=== PATIENT | female | born 1945 | race Caucasian/White ===

== ENCOUNTER 2017-08-01 09:58 | Inpatient (IN) | payer OTHER ==
[2017-07-24 14:01] VITALS: BMI 37.0
--- NOTE | 2017-07-24 14:40 | PAT Medication Instructions ---
Service Date Jul 24, 2017. Current Home Medication List Alendronate/Cholecalciferol (Fosamax+D 70MG/2800 Iu), 1 TABLET PO WK Aspirin (Aspirin Ec), 81 MG PO HS Escitalopram Oxalate (Lexapro), 40 MG PO HS Levothyroxine Sodium (Levothyroxine Sodium), 1 TAB PO QAM Lisinopril (Prinivil), 5 MG PO BID Lorazepam (Ativan), 0.5 MG PO BID PRN for RN Meloxicam (Mobic), 15 MG PO QAM Metoprolol Tartrate (Lopressor) (Lopressor), 25 MG PO QAM Multivitamin (Multivitamin), 1 TAB PO QPM Simvastatin (Zocor), 20 MG PO QPM Medication Instructions For Your Scheduled Surgery -Continue as directed: Alendronate/Cholecalciferol (Fosamax+D 70MG/2800 Iu), 1 TABLET PO WK - Hold the following medications per your surgeon's instructions: Meloxicam (Mobic), 15 MG PO QAM - Hold the following medications 24 hours prior to surgery: Lisinopril (Prinivil), 5 MG PO BID-- do not take the day before or the morning of surgery - Take the following medications the morning of surgery with a sip of water: Metoprolol Tartrate (Lopressor) (Lopressor), 25 MG PO QAM Lorazepam (Ativan), 0.5 MG PO BID PRN for RN (if needed) Levothyroxine Sodium (Levothyroxine Sodium), 1 TAB PO QAM - Take the following medications as scheduled the night before surgery: Multivitamin (Multivitamin), 1 TAB PO QPM Simvastatin (Zocor), 20 MG PO QPM Lorazepam (Ativan), 0.5 MG PO BID PRN for RN (if needed) Escitalopram Oxalate (Lexapro), 40 MG PO HS Aspirin (Aspirin Ec), 81 MG PO HS If you have any questions please call us at [phone] or [phone] or [phone]
--- NOTE | 2017-07-24 15:16 | DIAGNOSTIC IMAGING REPORT ---
TWO VIEW CHEST CLINICAL HISTORY: Preoperative examination. FINDINGS: PA and lateral chest radiographs are obtained. No prior studies are available for comparison at the time of dictation. The PA view is degraded by atypical lordotic positioning. The heart is mildly enlarged. The pulmonary vasculature is noncongested. The lungs and pleural spaces are clear. There is no pneumothorax. The skeletal structures are osteopenic. Degenerative change is noted throughout the thoracic spine. Cholecystectomy clips are identified in the right upper quadrant. IMPRESSION: Mild cardiac enlargement with no active disease in the chest. Electronically signed by: Ronny Lim M.D. 07/24/2017 3:14 PM Dictated Date/Time: 07/24/2017 3:14 PM
[2017-07-24 15:59] LABS: BASO % 0.4 %; BASO ABS # 0.03 K/uL (0-0.2); EOS % 1.1 %; EOS ABS # 0.09 K/uL (0-0.5); HEMATOCRIT 40.5 % (37-47); HEMOGLOBIN 13.4 g/dL (12.0-16.0); IG# 0.02 K/uL (0.00-0.02); LYMPH % 21.3 %; LYMPH ABS # 1.68 K/uL (1.2-3.4); MEAN CELL VOLUME 90.6 fL (80-100); MEAN CORPUSCULAR HGB CONC 33.1 g/dl (32-36); MEAN PLATELET VOLUME 10.7 fL (7.4-10.4); MONO % 5.8 %; MONO ABS # 0.46 K/uL (0.11-0.59); NEUT % 71.1 %; NEUT ABS # 5.61 K/uL (1.4-6.5); PLATELET COUNT 189 K/uL (130-400); RED CELL DISTRIBUTION WIDTH CV 13.3 % (11.5-14.5); RED CELL DISTRIBUTION WIDTH SD 44.1 fL (36.4-46.3); WHITE BLOOD COUNT 7.89 K/uL (4.8-10.8)
[2017-07-24 16:08] LABS: PTT PATIENT 28.7 SECONDS (21.0-31.0)
[2017-07-24 16:23] LABS: CREATININE 0.82 mg/dl (0.60-1.20); POTASSIUM 5.1 mmol/L (3.5-5.1)
--- NOTE | 2017-07-24 21:10 | HISTORY & PHYSICAL EXAMINATION ---
DATE OF ADMISSION: 08/01/2017 CHIEF COMPLAINT: Right hip and leg pain. HISTORY OF PRESENT ILLNESS: The patient is a 72-year-old female who is referred for treatment of her right hip. She has about a 1 year history of significantly increased right hip, leg and knee pain and discomfort. This started insidiously about a year ago. She saw a physician over in [place], who injected her knee several times with steroid as well as viscosupplementation without any relief. She had an MRI which revealed a fairly minimal arthritic change. She then saw her spine physician, Dr. Harper who evaluated her and got an x-ray of her hip which revealed advanced hip arthritis. She presents to me for treatment. Pain has been gradually gotten worse over the past year. She describes groin pain, thigh pain and knee pain. No swelling. She has been through all kinds of medicines with minimal relief. She would now like to proceed with surgical treatment. PAST MEDICAL HISTORY: 1. Hypertension. 2. Elevated cholesterol. 3. Sleep apnea with a CPAP machine. 4. Anxiety/depression. 5. Hypothyroidism. 6. Obesity. PAST SURGICAL HISTORY: Include: 1. Cholecystectomy. 2. Hysterectomy. 3. Tonsillectomy. 4. Herniorrhaphy. ALLERGIES: CODEINE WHICH CAUSES NAUSEA. CURRENT MEDICINES: 1. Citalopram 40 mg once a day. 2. Zocor 20 mg once a day. 3. Lisinopril 5 mg twice a day. 4. Metoprolol 50 mg once a day. 5. Fosamax 35 mg once a week. 6. Levothyroxine 25 mcg a day. 7. Aspirin 81 mg. 8. Centrum Silver once a day. 9. Meloxicam 15 mg a day. SOCIAL HISTORY: A 72-year-old female. She is . She is from [facility]. Does not smoke. FAMILY HISTORY: Negative for diabetes, heart disease, blood clots. REVIEW OF SYSTEMS: Negative for diabetes. Denies any chest pain or shortness of breath. No history of DVT or PE. Fairly minimal back pain. No fevers or weight loss. No rashes. PHYSICAL EXAMINATION: GENERAL: The patient reveals a healthy, pleasant, middle-aged female who looks to be in reasonably good health. HEENT: Benign. NECK: Supple. No lymphadenopathy. LUNGS: Clear to auscultation. HEART: Has a regular rate and rhythm. ABDOMEN: Soft, nontender, nondistended. EXTREMITIES: Grossly neurovascularly intact except as follows: Examination of the right leg reveals patient walks with a bit of a limp. Leg lengths clinically appear equal. She does have pain with any type of hip motion. She can internally rotate to neutral, external rotation of 25 degrees. It is painful. Negative straight leg raise. Examination of the right knee reveals fairly neutral alignment of knee. No knee effusion. Range of motion 125-130. No instability. X-RAYS: X-ray of the right hip reviewed. It shows advanced right hip DJD. She has got concentric loss of her joint space. Not a lot of osteophytes, but complete loss of the joint space. She has cystic changes of the femoral head and acetabulum. She does have an MRI of her knee from the outside, done in May 2017. Minimal arthritic change. No significant knee effusion. Mild degenerative changes of the medial meniscus. ASSESSMENT: A 72-year-old female with a 1 year history of progressively increasing right leg pain and discomfort, consistent with progressive hip arthritis. Despite being presented mostly as knee pain, I think most all of her pain is coming from her hip. She has failed conservative treatment and would like have her right hip replaced. PLAN: We will take her to the operating room and do a right total hip replacement. The risks and benefits of this procedure were explained to patient including but not limited to DVT, PE, , infection, neurological injury, vascular injury, bleeding problem, pain, limited range of motion, stiffness, failure to relieve symptoms, incomplete relief of symptoms, need for further surgery in the future, fracture, leg length inequality, nerve palsy, dislocation, etc. The patient understands and desires to proceed. Informed consent was obtained. We did talk to her about holding her Mobic 10 days preoperatively and lisinopril the morning of surgery. She will take her Lopressor the morning of surgery. I talked to bring her CPAP machine to the hospital. She is planning to be discharged to home using [facility]. Her can assist in her care. ZITA
[~2017-08-01] VITALS: Ht 160 cm; Wt 96.6 kg
[2017-08-01] VITALS (15 sets, daily range): BP systolic 110–175; BP diastolic 61–86; PULSE 64–81; TEMP 36.6–37; O2SAT 94–100; Ht 160 cm; Wt 96.6 kg
[~2017-08-01 09:58] MED LIST: ACETAMINOPHEN 500 MG TAB PO SCH; ASPI81TA28 PO; ATROPINE SULFATE 0.1 MG/ML 5ML SYR IV PRN; BUPIVACAINE 0.5 % 5 MG/1 ML PF 10ML VIAL ONE; CEFAZOLIN 2000MG IV PUSH 15 ML IV SCH; ESCI1TAB10 PO; EpHEDrine SULFATE INJ 50 MG/ML AMP IV PRN; FENTANYL CITRATE INJ 50 MCG/1 ML 2 ML VIAL IV PRN; FSMD/70 PO; GABAPENTIN 300 MG CAP PO SCH; HYDROmorphone INJ 1 MG/ML SYR IV PRN; LACTATED RINGER'S 1000ML 1,000 ML IV SCH; LACTATED RINGER'S 1000ML 500 ML IV SCH; LACTATED RINGER'S 1000ML IV SCH; LEVO25TA5 PO; LISI-729 PO; LORA-741 PO; MELO7.5T5 PO; METO25TA56 PO; METOCLOPRAMIDE HCL 10 MG TAB PO SCH; MULT-506 PO; ONDANSETRON INJ 2 MG/ML 2 ML VIAL IV PRN; PHENYLEPHRINE 100MCG/ML 5ML SYR IV PRN; SIMV20TA2 PO; TRANEXAMIC ACID INJ 1,000 MG in SYRINGE 0 ML IV SCH
[2017-08-01] MEDS ORDERED: MORPHINE SULFATE 1MG/1ML 30ML VIAL IV ONE (10:33)
[2017-08-01] MEDS ORDERED: FENTANYL CITRATE INJ 50 MCG/1 ML 2 ML VIAL ONE (10:33)
[2017-08-01] MEDS ORDERED: MIDAZOLAM HCL 1 MG/ML 2ML VIAL ONE ×2 (10:33→12:31)
--- NOTE | 2017-08-01 10:34 | History & Physical Bridge Note ---
H&P Re-Evaluation Bridge Note: I have examined the patient, reviewed the History & Physical and in the interval since the performance of the History & Physical I have noted the following changes of clinical significance: No changes noted
[2017-08-01] MEDS ORDERED: BUPIVACAINE/EPINEPHRINE 0.5% MPF 1:200,000 30 ML VIAL ONE (12:06)
[2017-08-01] MEDS ORDERED: BACITRACIN 50000 UNIT VIAL ONE (12:06)
[2017-08-01] MEDS ORDERED: SODIUM CHLORIDE 0.9% 1000ML 1,000 ML IV PRN (12:09)
[2017-08-01] MEDS ORDERED: NALOXONE HCL INJ 0.08 MG in SYRINGE 1.8 ML IV PRN (12:09)
[2017-08-01] MEDS ORDERED: NALOXONE HCL INJ 1 MG in SODIUM CHLORIDE 0.9% 1000ML 1,000 ML IV PRN ×4 (12:09)
[2017-08-01] MEDS ORDERED: LACTATED RINGER'S 1000ML 500 ML IV PRN (12:09)
[2017-08-01] MEDS ORDERED: ONDANSETRON INJ 2 MG/ML 2 ML VIAL IV PRN (12:15)
[2017-08-01] MEDS ORDERED: NO NARCOTICS OR SEDATIVES SCH (12:15)
[2017-08-01] MEDS ORDERED: NALBUPHINE HCL INJ 10 MG/ML AMP IV PRN (12:15)
[2017-08-01] MEDS ORDERED: MoRPHine SULFATE 2 MG/ML CARP IV PRN (12:15)
[2017-08-01] MEDS ORDERED: MoRPHine SULFATE PF 1 MG/ML 10 ML AMP/VIAL EPI PRN (12:15)
[2017-08-01] MEDS ORDERED: NALOXONE HCL 0.4 MG/1 ML VIAL/CARP IV PRN (12:15)
[2017-08-01] MEDS ORDERED: EpHEDrine SULFATE INJ 50 MG/ML AMP IV PRN (12:15)
[2017-08-01] MEDS ORDERED: DiphenhydrAMINE HCL 50 MG/ML VIAL IV PRN (12:15)
[2017-08-01] MEDS ORDERED: PROPOFOL IV EMULSION 10 MG/ML 20 ML VIAL IV ONE (12:31)
[2017-08-01] MEDS ORDERED: LIDOCAINE HCL 2% 2 ML VIAL (20MG/ML) ONE (12:31)
--- NOTE | 2017-08-01 14:12 | [facility] Post Operative Brief Note ---
Immediate Operative Summary Operative Date Aug 01, 2017. Pre-Operative Diagnosis Right Hip Degenerative Joint Disease Post-Operative Diagnosis Right Hip Degenerative Joint Disease Procedure(s) Performed Right Total Hip Arthroplasty- Uncemented Surgeon Dr. 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 right femoral head Drains None Anesthesia Type Spinal MAC Complication(s) none Disposition Accompanied Pt To Recover: yes Disposition: Recovery Room / PACU
[2017-08-01] MEDS ORDERED: BISACODYL 10 MG SUPP PR PRN (14:15)
[2017-08-01] MEDS ORDERED: SILVER SULFADIAZINE 1% CR 50 GM JAR EXT PRN (14:15)
[2017-08-01] MEDS ORDERED: ALUMINUM/MAGNESIUM/SIMETH (MAALOX MAX) 30 ML UDC PO PRN (14:15)
[2017-08-01] MEDS ORDERED: MAGNESIUM HYDROXIDE SUSP 30 ML UDC PO PRN (14:15)
--- NOTE | 2017-08-01 14:39 | Anesthesiology Progress Note ---
Anesthesia Post Op Note Date & Time Aug 01, 2017 at 14:39 Vital Signs Pain Intensity: 0 Vital Signs Past 12 Hours Date Time Temp Pulse Resp B/P (MAP) Pulse Ox O2 Delivery O2 Flow Rate FiO2 08/01/17 14:26 78 14 08/01/17 14:26 79 14 121/74 98 08/01/17 14:21 90 14 135/75 98 08/01/17 14:21 79 14 08/01/17 14:16 79 19 123/70 99 08/01/17 14:16 79 19 08/01/17 14:11 84 13 132/59 94 08/01/17 14:11 36.8 80 16 132/59 99 Nasal Cannula 2 08/01/17 14:11 88 13 08/01/17 10:45 37 75 20 175/86 97 Room Air Notes Mental Status: alert / awake / arousable, participated in evaluation Pt Amnestic to Procedure: Yes Nausea / Vomiting: adequately controlled Pain: adequately controlled Airway Patency, RR, SpO2: stable & adequate BP & HR: stable & adequate Hydration State: stable & adequate Anesthetic Complications: no major complications apparent Awake, doing well, pain controlled. VSS. Ready for d/c
--- NOTE | 2017-08-01 14:40 | DIAGNOSTIC IMAGING REPORT ---
AP PELVIS AND RIGHT HIP 2 VIEWS CLINICAL HISTORY: Degenerative arthritis. Postoperative study COMPARISON STUDY: Outside radiograph performed July 24, 2017 FINDINGS: There are postsurgical changes of a total right hip arthroplasty. The acetabular and femoral components appear well seated. Overlying skin moraima are evident. There is air within soft tissues consistent with recent surgery. There is no dislocation. IMPRESSION: Postsurgical changes of a total right hip arthroplasty. Electronically signed by: Steve Bazzi M.D. 08/01/2017 2:38 PM Dictated Date/Time: 08/01/2017 2:37 PM
[2017-08-01] MEDS: D5W AND 1/2NSS + 20MEQ KCL 1,000 ML IV SCH (16:09)
[2017-08-01] MEDS ORDERED: CEFAZOLIN IV 2,000 MG in DEXTROSE 5% 50ML 50 ML IV SCH (18:00)
--- NOTE | 2017-08-01 18:31 | PROGRESS NOTE ---
DATE: 08/01/2017 SUBJECTIVE: A 72-year-old female postop from a right hip replacement. She is doing well. Feeling tired and kind of wiped out. Denies any significant pain. No chest pain or shortness of breath. Not feeling dizzy or lightheaded. OBJECTIVE: VITAL SIGNS: Temperature is 36.7. Vital signs stable. GENERAL: Reveals a pleasant elderly female. She is lying in bed, looks pretty comfortable. LUNGS: Clear to auscultation. HEART: Regular rate and rhythm. ABDOMEN: Soft, nontender, nondistended. EXTREMITIES: Grossly neurovascularly intact except as follows: Examination of the right hip and leg reveals the leg lengths to be equal. Hip is located. The dressing is clean, dry and intact. Thigh is soft and supple. She is neurologically intact. She can dorsiflex and plantarflex her foot appropriately. X-RAYS: X-rays of the right hip from recovery room were reviewed. It shows a right uncemented total hip arthroplasty. Components looked to be in good position. No signs of problems. ASSESSMENT: A 72-year-old female postop from a right total hip replacement, doing well. Pain is controlled. She is neurologically intact. PLAN: 1. DVT prophylaxis including thigh-high TEDs, SCDs, and aspirin twice a day. 2. PT and OT. Weight bear as tolerated. Right total hip protocol. 3. Pain control. Doing well with current pain regimen. 4. IV antibiotics x24 hours. 5. Disposition: Plan to discharge to home with some home health once adequately recovered.
--- NOTE | 2017-08-01 18:47 | OPERATIVE REPORT ---
DATE OF OPERATION: 08/01/2017 SURGEON: Renaldo Miller MD. FLOORWALKER: NASIM Vale. PREOPERATIVE DIAGNOSIS: Right hip degenerative joint disease. POSTOPERATIVE DIAGNOSIS: Same. PROCEDURE PERFORMED: Right uncemented ceramic on highly cross-linked polyethylene total hip arthroplasty. COMPLICATIONS: None. ESTIMATED BLOOD LOSS: 300 mL FLUID REPLACEMENT: 1500 mL crystalloid fluid replacement. OPERATIVE INDICATIONS: The patient is a 72-year-old female who has had a one-year history of markedly increased right hip pain and discomfort, describes that it has gotten worse over time. She had been treated for knee arthritis for quite some time without any success. Symptoms eventually localized to her hip. X-rays reveal advanced hip DJD. She failed conservative treatment and elected to proceed with operative treatment. OPERATIVE FINDINGS: Operative findings revealed advanced right hip DJD. She had grade 4 [id number] disease of the femoral head and acetabulum. Not much in the way of eburnation. She had more severe acetabular disease than femoral head disease. Moderate size joint effusion. Fairly hypertrophic thickened labrum. OPERATIVE IMPLANTS: Operative implants consisted of: 1. Biomet G7 size 52 mm acetabular shell. 2. An apex hole eliminator. 3. 6.5 cancellous acetabular screws, 1 at 35 mm length and 1 at 30 mm length. 4. Highly cross-linked polyethylene liner with a 52 mm outer diameter and 32 mm inner diameter. 5. DePuy size 13 coxa vara Corail femoral stem. 6. +1/32 mm ceramic articular ball. OPERATIVE PROCEDURE: The patient taken to the operating room, identified and placed on the operative table in supine position. All contact areas were appropriately padded. IV antibiotics were provided by the anesthesia team. A spinal anesthetic had been implemented in the holding area. Villanueva catheter was placed in sterile fashion. The patient was then placed in the left lateral decubitus position. An axillary roll was placed. A Stulberg hip positioner was used for positioning. The right hip and leg were then prepped and draped in usual sterile fashion. A curvilinear incision was made over the right hip centered over the greater trochanter. Sharp dissection was carried out through the subcutaneous tissues down to the level of the IT band and gluteal fascia. The IT band and gluteal fascia were incised longitudinally in line with skin incision. The underlying greater trochanteric bursa was excised. The piriformis and external rotator were tagged and taken off the posterior aspect of the hip joint capsule. A posterior capsulotomy was then performed. Great care was taken throughout the procedure to protect the sciatic nerve at all times. Her offset was fairly short, so there was not a whole lot of room between the proximal femur and the acetabulum. Hip was internally rotated and dislocated. Femoral neck osteotomy cut was made with final cut a centimeter above the lesser trochanter. Femoral head was removed and sent for pathology. The femur was retracted anteriorly. Attention was then drawn to the acetabulum. The acetabular labrum was excised. The pulvinar fat was excised. Sequential reaming of the acetabulum was then performed beginning with a size 43 and progressing up to a 51. A 52 mm Biomet G7 acetabular shell was then placed in about 40 degrees of lateral opening and 20 degrees of anteversion. It was fixed with two 6.5 cancellous acetabular screws which both obtained excellent purchase. Trial liner was placed. Attention was then drawn to the femur. The proximal femur was entered with a [employer] cutter followed by a canal finder. I broached beginning with a size 8 and progressing up to a size 13. We got excellent fit with the 13 with both proximal fill as well as rotational control. We elected to use these implants. The calcar reamer was used to smoothen off the calcar. I trialed the hip. The hip was fully stable with all head and neck lengths but I was concerned about making her too long with her short offset. We elected to use a +1/32 mm articular ball. The hip was fully stable in full extension and external rotation, flexion to 90 degrees, internal rotation to 50+ degrees. Leg lengths seemed equal. Attention was then drawn toward placement of these implants. All trial implants were removed. An apex hole eliminator was placed. A highly cross-linked polyethylene liner was placed. A size 13 coxa vara Corail femoral stem was impacted in position. A +1/32 mm ceramic articular ball was placed. Hip was located and once again found to be stable. Attention was then drawn toward closing. The wound was irrigated with copious amounts of pulsatile lavage solution. I did inject locally with 60 mL of 0.5% Marcaine with epinephrine. The posterior capsule and external rotators were then repaired through drill holes and the posterior aspect of the trochanter with #2 Ti-Cron suture. The IT band and gluteal fascia were then closed with #1 PDS suture in running fashion. Subcutaneous tissues were then closed in 2 layers with the deep layer with #1 Vicryl suture and subcutaneous tissues with 2-0 Dexon suture in a buried interrupted fashion. The skin was closed with skin moraima. The leg was then cleaned and dried, and a sterile dressing of Xeroform, 4 x 4's, sterile ABD pad and foam tape was applied. The patient was then transferred to the recovery room in stable condition. The patient tolerated the procedure with no complications. All needle and sponge counts were correct at the end of the operation. I attest to the content of the Intraoperative Record and any orders documented therein. Any exception s are noted below.
[2017-08-01] MEDS: FERROUS GLUCONATE 324 MG TAB PO SCH (18:59)
[2017-08-01] MEDS: KETOROLAC TROMETHAMINE 15 MG/ML VIAL IV. SCH ×2 (18:59→23:59)
[2017-08-01] MEDS ORDERED: TRANEXAMIC ACID INJ 1,000 MG in SODIUM CHLORIDE 0.9% 100ML 100 ML IV ONE (20:00)
[2017-08-01] MEDS: CEFAZOLIN IV 2,000 MG in SYRINGE 0 ML IV SCH (20:06)
[2017-08-01] MEDS: TAPENTADOL ER 50 MG TABCR PO SCH (21:00)
[2017-08-01] MEDS: ESCITALOPRAM OXALATE 20 MG TAB PO SCH (21:02)
[2017-08-01] MEDS: LISINOPRIL 5 MG TAB PO SCH (21:02)
[2017-08-01] MEDS: DOCUSATE SODIUM 100 MG CAP PO SCH (21:02)
[2017-08-01] MEDS: ASPIRIN 325 MG ECTAB PO SCH (21:03)
[2017-08-01] MEDS: SIMVASTATIN 20 MG TAB PO SCH (21:03)
[2017-08-01] MEDS: MULTIVITAMIN TAB PO SCH (21:03)
[2017-08-01] MEDS: SENNA 8.6 MG TAB PO SCH (21:03)
[2017-08-01] MEDS: ACETAMINOPHEN 500 MG TAB PO SCH (21:06)
[2017-08-02] VITALS (13 sets, daily range): BP systolic 90–112; BP diastolic 47–63; PULSE 67–89; TEMP 36.8–37.3; O2SAT 92–100
[2017-08-02] MEDS ORDERED: NURSING DECISION MEDICATION ORDER SCH (02:00)
[2017-08-02] MEDS: D5W AND 1/2NSS + 20MEQ KCL 1,000 ML IV SCH (03:55)
[2017-08-02] MEDS: CEFAZOLIN IV 2,000 MG in SYRINGE 0 ML IV SCH (03:55)
[2017-08-02] MEDS: LEVOTHYROXINE 25 MCG TAB PO SCH (05:47)
[2017-08-02] MEDS: ACETAMINOPHEN 500 MG TAB PO SCH ×3 (05:47→20:33)
[2017-08-02] MEDS: KETOROLAC TROMETHAMINE 15 MG/ML VIAL IV. SCH ×4 (05:47→23:14)
[2017-08-02] MEDS ORDERED: DC INTRASPINAL MORPHINE SCH (06:00)
[2017-08-02] MEDS ORDERED: HYDROmorphone INJ 0.5 MG/0.5 ML SYR IV PRN (06:01)
[2017-08-02] MEDS ORDERED: LORAZEPAM 0.5 MG TAB PO PRN (06:01)
[2017-08-02] MEDS ORDERED: ZOLPIDEM TARTRATE 5 MG TAB PO PRN (06:01)
[2017-08-02] MEDS ORDERED: METOCLOPRAMIDE HCL INJ 5 MG/ML 2 ML VIAL IV PRN (06:01)
[2017-08-02] MEDS ORDERED: HYDROmorphone HCL 2 MG TAB PO PRN (06:01)
[2017-08-02] MEDS ORDERED: ONDANSETRON INJ 2 MG/ML 2 ML VIAL IV PRN (06:01)
[2017-08-02] MEDS ORDERED: DLD/2 PO (06:42)
[2017-08-02] MEDS ORDERED: ACET-24 PO (06:42)
[2017-08-02] MEDS ORDERED: ASPEC325 PO (06:42)
[2017-08-02] MEDS ORDERED: FRRG PO (06:42)
--- NOTE | 2017-08-02 06:44 | Discharge Instructions ---
Discharge Instructions Date of Service Aug 02, 2017. Admission Reason for Admission: Right Hip Degenerative Joint Disease Discharge Discharge Diagnosis / Problem: Right Hip Replacement Discharge Goals Goal(s): Decrease discomfort, Improve function, Increase independence, Improve disease control, Therapeutic intervention Activity Recommendations Activity Limitations: per Instructions/Follow-up section (Total Hip PRecautions ) Weightbearing Status: Right weightbearing . Instructions / Follow-Up Instructions / Follow-Up ACTIVITY RECOMMENDATIONS: Physical Therapy: * Aggressive physical therapy is not usually needed. You will learn to take care of yourself safely and walk. * Follow the "Hip Precautions Instructions." * In some cases, the social work manager at the hospital will arrange to have a therapist come to your house for the first couple of weeks to help you learn these skills. * You need to practice on your own or with the help of a family member as needed. * When you learn these skills, most of the therapy can be done on your own. Home Exercise: * You were shown a series of exercises in the hospital. Do these exercises three to four times each day including the exercises you were shown in physical therapy. Walking: * Get up and walk several times each day. For the first four weeks, try not to stand or walk for more than one hour at a time. If you do stand or walk for more than one hour, you will not hurt anything, but your leg will likely swell. * As you feel comfortable, you may change from the walker or crutches to a cane and then to independent walking. MEDICATIONS: New Medicine: * You will likely be taking one or more of these medicines: 1. Dilaudid - Take, as directed, when you need it, every four to six hours to control your pain. 2. Iron Sulfate - Take two times each day for the month after surgery to help you replace the blood lost during surgery. 3. Aspirin - Thins your blood to lessen the chance of forming a blood clot. * The most common side effects of pain medicine and iron are nausea and constipation. If nausea or constipation is too much of a problem or if you have any questions about your new medicines or doses, call [facility] at . We will try to help you manage these issues. VERY IMPORTANT TO READ AND REVIEW" Pain: * The immediate post-operative period after hip replacement surgery is often quite painful. * You are given a prescription for pain medicine. You should take it, as directed, when you need it, especially before physical therapy and before going to bed. Pain that interferes with sleep is very common and can last several months. * You will likely need pain medicine for the first two to four weeks. It will not stop all of the pain. The pain will lessen and as you feel better, you may change to milder pain medicine such as Tylenol. * The most common side effects of pain medicine are nausea and constipation, so don't take more than you need. SPECIAL CARE INSTRUCTIONS: TEDs/Elastic Stockings: * The white elastic stockings help limit swelling and prevent blood clots from forming in your legs. The more you wear them, the more they work. * Wear them for six weeks. Prevention of Infection: * Take antibiotics one hour before any dental cleaning, dental work, urological procedure, gastrointestinal procedure or any invasive surgery in order to prevent your new joint from getting infected. * You may get the antibiotics from the doctor performing the procedure or you may call our office at before and we will call in a prescription to the pharmacy of your choice. Things to Watch For: * Drainage from the incision site that occurs more than one week after your surgery. * Severely increased leg pain or swelling. * Increased redness at the incision site. * Fever above 102 degrees Fahrenheit. * Unusual chest pain or shortness of breath. * Unusual pain or burning with urination. Call [facility] at with any of the above problems or if you have any questions about your medicines or recovery. FOLLOW UP VISIT: Make an appointment to see your doctor for approximately two weeks after surgery for a progress check and staple removal by calling the office at . Current Hospital Diet Patient's current hospital diet: Regular Diet Discharge Diet Recommended Diet: Regular Diet Procedures Procedures Performed: Right Total Hip Arthroplasty- Uncemented Pending Studies Studies pending at discharge: no Medical Emergencies . Who to Call and When: Medical Emergencies: If at any time you feel your situation is an emergency, please call [phone] immediately. . Non-Emergent Contact Non-Emergency issues call your: Surgeon . "Provider Documentation" section prepared by Renaldo Miller. . VTE Core Measure Inpt VTE Proph given/why not?: Other Anticoagulation, T.E.D. Stockings, SCD's
--- NOTE | 2017-08-02 06:48 | PROGRESS NOTE ---
DATE: 08/02/2017 SUBJECTIVE: A 72-year-old white female postop day 1 from right total hip replacement. She is doing well. Pain is controlled. She says she was out walking this morning. Not feeling dizzy or lightheaded. No chest pain or shortness of breath. OBJECTIVE: VITAL SIGNS: Temperature 37.0. Vital signs stable. GENERAL: Reveals a pleasant, elderly female. She is lying in bed and looks comfortable. LUNGS: Clear to auscultation. HEART: Regular rate and rhythm. ABDOMEN: Soft, nontender, nondistended. EXTREMITIES: Grossly neurovascularly intact except as follows. Examination of the right hip and leg reveals leg lengths to be equal. Dressing is clean, dry and intact. Thigh is soft and supple. She is neurologically intact. LABORATORY DATA: Pending. ASSESSMENT: A 72-year-old white female postop day 1 from right total hip replacement, doing well. Pain is controlled. Hip is located. She is neurologically intact. PLAN: 1. DVT prophylaxis including thigh high TEDs, SCDs, and aspirin twice a day. 2. PT and OT. Weight bear as tolerated. Right total hip protocol. 3. Pain control. Doing well with current pain regimen. 4. Disposition: Plan to discharge to home with some home health once adequately recovered.
[2017-08-02] MEDS: FERROUS GLUCONATE 324 MG TAB PO SCH ×3 (07:46→17:51)
[2017-08-02] MEDS: ASPIRIN 325 MG ECTAB PO SCH ×2 (07:46→20:30)
[2017-08-02] MEDS: DOCUSATE SODIUM 100 MG CAP PO SCH ×2 (07:46→20:30)
[2017-08-02] MEDS: METOPROLOL TARTRATE 25 MG TAB PO SCH (07:47)
[2017-08-02] MEDS: LISINOPRIL 5 MG TAB PO SCH ×2 (07:47→20:30)
[2017-08-02] MEDS: PANTOprazole SOD 40 MG TAB PO SCH (07:48)
[2017-08-02 07:52] LABS: BASO % 0.1 %; BASO ABS # 0.01 K/uL (0-0.2); EOS % 0.3 %; EOS ABS # 0.02 K/uL (0-0.5); HEMATOCRIT 29.5 % (37-47); HEMOGLOBIN 9.5 g/dL (12.0-16.0); IG# 0.01 K/uL (0.00-0.02); LYMPH % 14.7 %; LYMPH ABS # 1.07 K/uL (1.2-3.4); MEAN CELL VOLUME 90.5 fL (80-100); MEAN CORPUSCULAR HEMOGLOBIN 29.1 pg (25-34); MEAN CORPUSCULAR HGB CONC 32.2 g/dl (32-36); MEAN PLATELET VOLUME 10.1 fL (7.4-10.4); MONO % 11.3 %; MONO ABS # 0.82 K/uL (0.11-0.59); NEUT % 73.5 %; NEUT ABS # 5.34 K/uL (1.4-6.5); PLATELET COUNT 147 K/uL (130-400); RED CELL DISTRIBUTION WIDTH CV 12.8 % (11.5-14.5); RED CELL DISTRIBUTION WIDTH SD 42.3 fL (36.4-46.3); WHITE BLOOD COUNT 7.27 K/uL (4.8-10.8)
[2017-08-02] MEDS: TAPENTADOL ER 50 MG TABCR PO SCH ×2 (07:53→20:30)
[2017-08-02 08:26] LABS: CALCIUM 8.3 mg/dl (8.5-10.1); CREATININE 0.71 mg/dl (0.60-1.20)
[2017-08-02] MEDS ORDERED: MULTIVITAMIN TAB PO SCH (09:00)
[2017-08-02] MEDS: SIMVASTATIN 20 MG TAB PO SCH (20:31)
[2017-08-02] MEDS: SENNA 8.6 MG TAB PO SCH (20:31)
[2017-08-02] MEDS: MULTIVITAMIN TAB PO SCH (20:32)
[2017-08-02] MEDS: ESCITALOPRAM OXALATE 20 MG TAB PO SCH (20:32)
[2017-08-03] MEDS: ACETAMINOPHEN 500 MG TAB PO SCH ×2 (05:31→13:21)
[2017-08-03] MEDS: LEVOTHYROXINE 25 MCG TAB PO SCH (05:31)
[2017-08-03] MEDS: KETOROLAC TROMETHAMINE 15 MG/ML VIAL IV. SCH ×2 (05:32→12:00)
--- NOTE | 2017-08-03 07:52 | PROGRESS NOTE ---
DATE: 08/03/2017 SUBJECTIVE: A 72-year-old female postop day 2 from a right total hip replacement. She is doing well. Her hip, thigh, and knee pain resolved. She has a little soreness in her buttock area. No chest pain or shortness of breath. She is not feeling dizzy or lightheaded. Ready to go home. OBJECTIVE: VITAL SIGNS: Temperature 37.3. Vital signs stable. PHYSICAL EXAMINATION: GENERAL: This is a pleasant elderly female. She is sitting up on her bedside chair and looks comfortable. EXTREMITIES: Examination of the right hip and leg reveals the dressing to be clean, dry and intact. Hip is located. She is neurologically intact. ASSESSMENT: A 72-year-old female postop day 2 from a right total hip replacement, doing well. Pain is controlled. Hip is located. She is neurologically intact. PLAN: 1. DVT prophylaxis including thigh-high TEDs, SCDs, and aspirin twice daily. 2. PT and OT. Weight bear as tolerated. Right total hip protocol. 3. Pain control, doing well with current regimen. 4. Disposition: We are going to discharge her home with some home health later today.
[2017-08-03 07:54] VITALS: BP 96/59; PULSE 69; TEMP 36.9; O2SAT 96
[2017-08-03] MEDS: LISINOPRIL 5 MG TAB PO SCH (09:00)
[2017-08-03] MEDS: METOPROLOL TARTRATE 25 MG TAB PO SCH (09:00)
[2017-08-03] MEDS: TAPENTADOL ER 50 MG TABCR PO SCH (09:00)
[2017-08-03] MEDS: FERROUS GLUCONATE 324 MG TAB PO SCH ×2 (09:14→12:18)
[2017-08-03] MEDS: PANTOprazole SOD 40 MG TAB PO SCH (09:15)
[2017-08-03] MEDS: ASPIRIN 325 MG ECTAB PO SCH (12:17)
[2017-08-03] MEDS: DOCUSATE SODIUM 100 MG CAP PO SCH (12:18)
[2017-08-03 12:29] VITALS: BP 96/59; PULSE 69; TEMP 36.9; O2SAT 96
== END 2017-08-03 13:47 | disposition home health service (06) | DRG 470 ==
LOC: C.ACU 09:58 → C.MSW 14:18 → ENRESERV 15:17
PROVIDERS: ADMIT Orthopaedic Surgery Sports Medicine; ATTEND Orthopaedic Surgery Sports Medicine
PROC: 0SR904A Replacement of Right Hip Joint with Ceramic on Polyethylene Synthetic Substitute, Uncemented, Open Approach (ICD-10-PCS; principal; 2017-08-01 12:15)
DX: M16.11 Unilateral primary osteoarthritis, right hip (principal); I10 Essential (primary) hypertension; E78.00 Pure hypercholesterolemia, unspecified; E03.9 Hypothyroidism, unspecified; G47.30 Sleep apnea, unspecified; F41.9 Anxiety disorder, unspecified; F32.9 Major depressive disorder, single episode, unspecified; E66.9 Obesity, unspecified; Z79.899 Other long term (current) drug therapy; Z79.82 Long term (current) use of aspirin; Z68.37 Body mass index [BMI] 37.0-37.9, adult